=== PATIENT | female | born 1940 | race Caucasian/White ===

== ENCOUNTER → 2016-07-14 | Outpatient (CLI) | payer MEDICARE, BC, OTHER ==
[~2016-07-14] MED LIST: ATIVAN 0.5MG0.5 MG PO; COREG25 MG PO; DETROL LA4 MG PO; PRINIVIL (ZESTR20 MG PO; ZOLOFT100 MG PO
== END | disposition disaster alternative care site (69) ==
LOC: GRAD 13:00
DX: S82.891D Other fracture of right lower leg, subsequent encounter for closed fracture with routine healing (principal); S82.002D Unspecified fracture of left patella, subsequent encounter for closed fracture with routine healing; Z96.652 Presence of left artificial knee joint